=== PATIENT | male | born 1940 | race Caucasian/White ===

== ENCOUNTER 2016-09-14 14:01 | Emergency (ER) | payer OTHER, MEDICARE ==
--- NOTE | 2016-09-14 14:21 | CPEKG ---
Heart Rate: 68 RR Interval: 882 P-R Interval: 200 QRSD Interval: 138 QT Interval: 440 QTC Interval: 469 P [place]: 10 QRS [place]: -28 T Wave [place]: -2 EKG Severity - ABNORMAL ECG - EKG Impression: SINUS RHYTHM EKG Impression: RBBB AND LAFB Electronically Signed By: Reynold Hsu 14-Sep-2016 15:00:51
[2016-09-14 14:41] LABS: ABSOLUTE NRBC COUNT 0.02 10^3/uL (0-0.01); ADD DIFF? YES; ADD MORPH? NO; ADD SCAN? NO; ATYPICAL LYMPHOCYTE FLAG 0 (0-99); FRAGMENT RBC FLAG 0 (0-99); HEMATOCRIT 46.1 % (40.0-51.0); HEMOGLOBIN 15.3 g/dL (13.7-17.5); LEFT SHIFT FLG 30 (0-99); LIPEMIA HEMOLYSIS FLAG 80 (0-99); MEAN CELL HEMOGLOBIN CONCENTR. 33.2 g/dL (32.4-36.7); MEAN CELL VOLUME 93.5 fL (81.5-99.8); MEAN PLATELET VOLUME 10.2 fL (8.7-11.7); NRBC-AUTO% 0.3 % (0.0-0.2); PLATELET CLUMPS FLAG 0 (0-99); PLATELET COUNT 152 10^3/uL (150-400); RED BLOOD CELL COUNT 4.93 10^6/uL (4.40-6.38); RED CELL DISTRIBUTION WIDTH 12.7 % (11.5-15.2)
--- NOTE | 2016-09-14 14:45 | EDPHY ---
H & P Time Seen by Provider: 09/14/16 14:13 HPI/ROS: CHIEF COMPLAINT: Chest pain HISTORY OF PRESENT ILLNESS: This is a 76-year-old male with history of prostate cancer status post prostatectomy who was undergoing [facility]. This is an immunologic treatment . At the end of the infusion he developed a shaking chill, became flushed, and then developed low back and chest pain. The chest pain was initially substernal and then radiated out to both sides of his chest and into both shoulders. The pain was a dull aching sensation. He denies shortness of breath. He had no sensation of throat closing. He has no history of known coronary artery disease. He does have a history of V-tach for which he takes medication. He also has a history of hypertension and hyperlipidemia. I spoke with the nurse that was caring for him at [facility] and she tells me that the treatment he received today is an infusion of CD 54 immune cells that were spun out of his own blood at [facility], then reinfused today over a 1 hour time period. It was at the end of his treatment when he developed rigors and flushing. This, along with allergic reactions, are known side effects apparently. He had been pre treated with Tylenol and Benadryl. When he developed shaking chill he was given a 2nd Benadryl, about 1 hour prior to his presentation in the emergency department. He continued with shaking chill and was given 100 mg of Solu-Cortef intravenously and then transported to the emergency department by ambulance. Along with chest pain he was noted to have a blood pressure of 200/100. At the time of my interview or he is feeling much more comfortable. He is not experiencing chest pain. He is not tremulous or rigorous. REVIEW OF SYSTEMS: A ten point review of systems was performed and is negative with the exception of the items mentioned in the HPI. Past Medical/Surgical History: 1. Prostate cancer 2. V tach on medication 3. HTN 4. Hyperlipidemia Social History: He lives with his . Retired from [employer] No tobacco or alcohol use. General: Alert, NAD.BP 193/99. HEENT: Conjunctiva clear, Anicteric. Oropharynx without swelling or erythema. Swallowing easily. Moist oral mucosa. Neck: No lymphadenopathy. Soft, nontender, 1 cm by 1.5 cm swelling under chin with slight rightward orientation--he states that this has been present for many , many years and evaluated by three physicians and he thinks it might be a "blocked gland". No thyromegaly. No tracheal deviation. Lungs: CTA, no wheezes, stridor, ronchi, or rales. Heart: RRR, no murmur. Abdomen: Soft, nontender, nondistended. No organomegaly. Bowel sounds present. Back: Nontender to palpation over thoracolumbar spine. Skin: No rash or urticaria. Skin is warm and dry, without flushing. Pulses: 2+ bilateral radial. Extremities: No calf swelling or tenderness. No LE edema. Neuro: Oriented X 4. PERRL. EOMI. Facial expressions symmetric. Tongue midline. Moving all four extremities equally and spontaneously. Sensation intact to light touch over all 4 extremities. Psych: No agitation, normal affect. Smoking Status: Never smoked Physical Exam: As above. Constitutional: Initial Vital Signs Temperature (C) 36.6 C 09/14/16 14:14 Heart Rate 82 09/14/16 14:14 Respiratory Rate 16 09/14/16 14:14 Blood Pressure 193/99 H 09/14/16 14:14 O2 Sat (%) 90 L 09/14/16 14:14 O2 Delivery Mode Room Air O2 (L/minute) 2 Allergies/Adverse Reactions: oxycodone Allergy (Verified 09/14/16 14:13) Home Medications: Medication Instructions Recorded Lisinopril 09/14/16 Medical Decision Making - Diagnostics EKG Interpretation: EKG reviewed by ED physician in [facility]. No acute changes. RBBB. ED Course/Re-evaluation: Patient had been pretreated with Benadryl and Tylenol prior to his infusion. He received another dose of Benadryl after he developed a reaction. He also receive Solu-Cortef. He was given aspirin by the paramedics EN route to the emergency department. He feels well at the time of my initial evaluation. He was re-evaluated at 3:30 p.m.. He continues to feel fine except that he is slightly fatigued. He attributes this to the 2 doses of Benadryl that he has received. He is not experiencing any chest pain. Heart is regular. Lungs are clear. Oropharynx is without swelling and he is managing his secretions easily. I have spoken with Dr. Diana Levine about this patient. She recommends another dose of Benadryl and Tylenol tonight. No additional emergency department evaluation or treatment is recommended. This reaction appears to be similar to a transfusion reaction, rather than an allergic reaction. He has had no respiratory difficulty, skin rash, or angioedema in the emergency department. I do not suspect a primary cardiac problem as the etiology of his chest pain. Differential Diagnosis: DDX includes but is not limited to transfusion reaction, anaphylaxis, allergic reaction, angioedema, urticaria, myocardial chest pain. - Data Points Laboratory Results: Laboratory Results 09/14/16 14:16 09/14/16 14:16 Departure - Departure Disposition: Home, Routine, Self-Care Clinical Impression: Transfusion reaction Qualifiers: Qualifier Code: (T80.92XA) Unspecified transfusion reaction, initial encounter Condition: Good Instructions: Blood Transfusion Reactions (ED) Additional Instructions: I am giving information about transfusion reactions as what occurred to earlier is similar to a transfusion reaction. You will need to speak with the cancer doctors about whether you can receive this treatment again. I do not expect you to have a recurrence of your symptoms this evening but if you have any new or concerning symptoms you can contact the oncologist educational guidance counselor. I have spoken with Dr. Diana Levine and she is aware of your visit to the emergency department. It is recommended that you take Tylenol 650 mg and Benadryl 25-50 mg this evening. You should take this around 8:00 p.m.. Referrals: Zoe Maya MD [Primary Care Provider] - As per Instructions Diana Levine MD [Medical Doctor] - As per Instructions
[2016-09-14 14:51] LABS: ANION GAP 13 mEq/L (8-16); CARBON DIOXIDE 26 mEq/l (22-31); CHLORIDE 105 mEq/L (97-110); CREATININE 0.8 mg/dL (0.7-1.3); GLOMERULAR FILTRATION RATE > 60; GLUCOSE 101 mg/dL (70-100); POTASSIUM 4.4 mEq/L (3.5-5.2); SODIUM 144 mEq/L (134-144)
[2016-09-14 15:02] LABS: PLATELET ESTIMATE ADEQUATE (ADEQ); TROPONIN I < 0.012 ng/mL (0-0.034)
[2016-09-14 16:16] VITALS: BP 144/87; PULSE 78; RESP 15; TEMP 98.2; O2SAT 92
== END 2016-09-14 16:21 | disposition home or self-care (01) ==
LOC: EDUNIT#
DX: R07.2 Precordial pain (principal); T80.92XA Unspecified transfusion reaction, initial encounter; T45.1X5A Adverse effect of antineoplastic and immunosuppressive drugs, initial encounter; C61 Malignant neoplasm of prostate; I10 Essential (primary) hypertension; Y82.8 Other medical devices associated with adverse incidents

== ENCOUNTER → 2016-09-22 | Outpatient (CLI) | payer OTHER, MEDICARE ==
[~2016-09-22] MED LIST: REGADENOSON 0.4 MG/5 ML SYR IVP ONE
--- NOTE | 2016-09-22 15:07 | CPR ---
[f rep st] NONINVASIVE CARDIAC PROCEDURE REPORT DATE OF PROCEDURE: 09/22/2016 PROCEDURE: Lexiscan nuclear stress test. INDICATION: The patient is a 76-year-old male with a history of coronary artery disease. He had a r eaction during a chemotherapy appointment the other day which was associated with chest discomfort. DESCRIPTION OF PROCEDURE: Consent was obtained and the patient was placed on continuous telemetry. His resting EKG revealed normal sinus rhythm with 1 PVC. He has a right bundle branch block and left posterior fascicular block. The patient was infused with Lexiscan and complained of mild abdominal discomfort. He remained in normal sinus rhythm with rare PVCs with the infusion. There were no sign ificant ST-T wave changes. His symptoms recovered within 1-2 minutes post-infusion. His blood press ure at rest was 168/92, but he was extremely anxious at that time. His pressure declined with the in fusion and then remained lower postprocedure. PLAN: Await nuclear images. /[id number]/MODL
--- NOTE | 2016-09-22 16:31 | NM ---
Nuclear Medicine Myocardial Perfusion Stress and Rest Imaging With Lexiscan History: Chest pain. R07.9, R 94.31, prostate carcinoma. Comparison Studies: Chest x-ray December 2008. Technique: Rest imaging performed with intravenous administration of 11.1 mCi of technetium 99m labe led sestamibi. Stress imaging performed with the intravenous administration of 26.2 mCi of technetium 99m sestamibi labeled with the administration of 0.4 mg of Lexiscan. Findings: Normal left ventricular ejection fraction of 72%. Stress and rest imaging demonstrates no e vidence of fixed or reversible defects to suggest ischemia or infarct. No focal wall motion abnormali ties. Impression: 1. Normal left ventricular ejection fraction of 72%. 2. No focal wall motion abnormalities. 3. No definite ischemia or infarct.
== END ==
LOC: FIMAGING 12:33
PROVIDERS: ATTEND Internal Medicine Cardiovascular Disease
DX: R94.31 Abnormal electrocardiogram [ECG] [EKG] (principal); R07.9 Chest pain, unspecified; I25.10 Atherosclerotic heart disease of native coronary artery without angina pectoris
CPT/HCPCS: 78452; 93017; A9500; J2785